=== PATIENT | female | born 1955 | race Caucasian/White ===

== ENCOUNTER → 2017-05-21 | Day surgery (SDC) | payer MEDICARE ==
[~2017-05-21] MED LIST: ASPI-630 PO; FLUO10CA13 PO; HYDROmorphone 2 MG/ML VIAL IV PRN; IV RINGERS,LACTATED 1000ML 1,000 ML IV SCH; LIDOCAINE 1% PF 2 ML VIAL. ID PRN; LIDOCAINE 2% PF Vial for OR 5 ML VIAL. ONE; LOVA20TA2 PO; METO-239 PO; MORPHINE SULFATE 2 MG/ML DISP.SYRIN. IV PRN; NITR100C62 PO; ONDANSETRON PF 4 MG/2 ML VIAL. IV PRN; OXYB1PAT4 TD; PROCHLORPERAZINE 10 MG/2 ML VIAL. IV PRN; PROPOFOL 40 ML IV ONE; ZOLP10TA PO; fentaNYL PF VIAL 100 MCG/2 ML VIAL IV PRN
[2017-05-21 11:28] VITALS: BP 109/54
--- NOTE | 2017-05-22 11:51 | PATHOLOGY ---
PATHOLOGY REPORT * * * * * * * * FINAL DIAGNOSIS: Colon biopsies, polyps x 2 at 15 cm: - Hyperplastic polyps. COMMENT: There are no adenomatous changes or evidence of malignancy. (JPM:mgr; 05/22/2017) REPORT ELECTRONICALLY SIGNED BY: Onofre Weinstein M.D. DATE/TIME: 05/22/2017 11:50 * * * * * * * * GROSS PATHOLOGY: Received in formalin labeled "Brittany Ceuvas, polyps x2 @ 15cm," are two segments of gomez soft tissue, each measuring 0.3 cm in maximum dimension. The specimen is submitted entirely in cassette A1. (JPM; 05/21/17) INITIAL CPT CODE(S): A; 13875 Professional services performed [place] [facility] [place] [address] Technical services performed by [facility] at [address] [place] [address]. SPECIMEN(S) RECEIVED: A.Polyps x2 @ 15cm CLINICAL HISTORY: Screening PATIENT: BRITTANY CUEVAS /AGE: 703/09/1955 (Age: 62) PATIENT #: [id number] ALT CASE #: SPECIMEN COLLECTION DATE: 05/21/2017 SPECIMEN RECEIVED DATE: 05/21/2017 [facility] - [address] [place] [address] - PHONE: [phone] * * * END OF REPORT * * *
== END | disposition home or self-care (01) ==
LOC: ENDOS 09:58
PROVIDERS: ATTEND Surgery
DX: Z12.11 Encounter for screening for malignant neoplasm of colon (principal); K63.5 Polyp of colon; F17.200 Nicotine dependence, unspecified, uncomplicated; Z90.710 Acquired absence of both cervix and uterus; Z87.39 Personal history of other diseases of the musculoskeletal system and connective tissue; Z72.0 Tobacco use; Z91.048 Other nonmedicinal substance allergy status
CPT/HCPCS: 45380; 88305; J2704; J2001

== ENCOUNTER → 2019-02-26 | Outpatient (CLI) | payer MEDICARE ==
[2017-05-21 11:28] VITALS: BP 109/54
[~2019-02-26] MED LIST changes: -HYDROmorphone 2 MG/ML VIAL IV PRN; -IV RINGERS,LACTATED 1000ML 1,000 ML IV SCH; -LIDOCAINE 1% PF 2 ML VIAL. ID PRN; -LIDOCAINE 2% PF Vial for OR 5 ML VIAL. ONE; -MORPHINE SULFATE 2 MG/ML DISP.SYRIN. IV PRN; -ONDANSETRON PF 4 MG/2 ML VIAL. IV PRN; -PROCHLORPERAZINE 10 MG/2 ML VIAL. IV PRN; -PROPOFOL 40 ML IV ONE; -fentaNYL PF VIAL 100 MCG/2 ML VIAL IV PRN
--- NOTE | 2019-03-01 10:23 | KCIC ---
Bilateral digital screening mammograms with 3-D tomosynthesis: Reason for examination: Routine screening. Comparison is made to previous study dated 02/23/2014. Bilateral mammograms in CC and oblique projections were obtained with 2-D imaging and 3-D tomosynthesis imaging on a Siemens Inspiration unit and reviewed on the workstation. Interpretation was made with the benefit of CAD. The skin and nipples show no abnormalities. No abnormal axillary lymph nodes are seen. The breast parenchyma is extremely dense. (Breast density: Category D.) There are no dominant masses, suspicious calcifications or architectural distortion. Impression: No evidence of malignancy. Recommend routine screening. Your patient's mammogram demonstrates that she has dense breast tissue (breast density category C or D), which could hide abnormalities, and if she has other risk factors for breast cancer that have been identified, she might benefit from supplemental screening tests that may be suggested by you as her ordering physician. Dense breast tissue, in and of itself, is a relatively common condition. Therefore, this information is not provided to cause undue concern, but rather to raise your awareness and to promote discussion with your patient regarding the presence of other risk factors, in addition to dense breast tissue. Your patient's mammography results will be sent to her. BI-RAD Category 1: Negative. "Our facility is accredited by the [employer] Mammography [employer]." This patient's information has been entered into a reminder system for the patient to be notified with the results of her examination and a target date for the next mammogram. Electronically signed by: Annette Cortez MD (03/01/2019 10:20 AM) [id number]
== END | disposition home or self-care (01) ==
LOC: KCIC MAMMO 14:52
PROVIDERS: ATTEND Obstetrics & Gynecology
DX: Z12.31 Encounter for screening mammogram for malignant neoplasm of breast (principal)
CPT/HCPCS: 77063; 77067

== ENCOUNTER → 2021-02-20 | Outpatient (CLI) | payer MEDICARE, OTHER ==
[2017-05-21 11:28] VITALS: BP 109/54
--- NOTE | 2021-02-20 18:08 | KCIC ---
EXAM: LEFT FOOT 3 VIEWS. HISTORY: Left foot pain after injury. COMPARISON: None. FINDINGS: Three views of the left foot are obtained. No fractures are identified acutely. There may be chronic fracture deformities of the fourth and fift h proximal phalanges. Alignment is normal. Joint spaces are maintained. IMPRESSION: 1. No acute fracture. Electronically signed by: Kenny Otero MD (02/20/2021 6:06 PM) [id number]
== END ==
LOC: KCIC 13:51
PROVIDERS: ATTEND Family Medicine
DX: M79.672 Pain in left foot (principal)
CPT/HCPCS: 73630